=== PATIENT | male | born 1940 | race American Indian/Alaskan Native ===

== ENCOUNTER 2018-07-20 11:50 | Outpatient (CLI) | payer MEDICARE, OTHER ==
[2018-07-20 12:30] LABS: Hematocrit 41.2 % (35.5-45.6); Mean Corpuscular HGB Conc 34 % (32-34); Mean Corpuscular Volume 92 fl (84-94); Platelet Count 192 K/mm3 (140-440); Red Cell Distribution Width 13.2 % (13.2-15.2)
[2018-07-20 12:42] LABS: Erythrocyte Sedimentation Rate 23 mm/Hr (0-20)
[2018-07-20 12:48] LABS: Alanine Aminotransferase 31 units/L (7-56); Albumin 4.1 g/dL (3.9-5); BUN/Creatinine Ratio 19; Blood Urea Nitrogen 17 mg/dL (9-20); Calcium 9.3 mg/dL (8.4-10.2); Hemolysis Index 21
== END 2018-07-20 11:51 | disposition home or self-care (01) ==
LOC: LAB 11:50
PROVIDERS: ATTEND Specialist
DX: G65.1 Sequelae of other inflammatory polyneuropathy (principal); G62.9 Polyneuropathy, unspecified; R73.9 Hyperglycemia, unspecified
CPT/HCPCS: 36415; 80053; 82306; 82607; 83036; 83921; 85027; 85652; 86334; 86592